=== PATIENT | female | born 1935 | race Caucasian/White ===

== ENCOUNTER 2017-10-17 22:59 | Emergency (ER) | payer MEDICARE, SELFPAY ==
[2017-10-17 23:00] VITALS: BP 139/69; PULSE 63; RESP 17; TEMP 36.7; O2SAT 96; BMI 22.2
--- NOTE | 2017-10-17 23:29 | CT_ITS ---
STUDY: CT CERVICAL SPINE WITHOUT CONTRAST REASON FOR EXAM: Female, 82 years old. Fall down stairs. Loss of consciousness. RADIATION DOSAGE (If Supplied By Facility): CTDIvol = ( 13.00 ) mGy, DLP = ( 253.94 ) mGycm TECHNIQUE: High resolution transaxial imaging was performed without contrast material. Sagittal and coronal images were reconstructed. Individualized dose optimization techniques were used for this CT. COMPARISON: None FINDINGS: Normal craniovertebral junction. Normal anterior atlantoaxial articulation. Normal odontoid process. 4 mm well-corticated density anterior to the midportion of the odontoid likely related to old trauma or degenerative changes. There is reversal of the normal cervical lordosis. Normal vertebral bodies and posterior osseous elements. C2-3: Normal endplates. Normal disc height and morphology. Normal central canal and intervertebral neuroforamina. C3-4: Disc space narrowing small marginal osteophytes. Normal central canal and intervertebral neuroforamina. C4-5: Disc space narrowing with small marginal osteophytes. Reversal of normal cervical lordosis and posterior osteophytes produces [id number] spinal stenosis. Normal intervertebral neuroforamina. C5-6: Disc space narrowing with small marginal osteophytes. 3 mm ovoid density within the anterior aspect of the thecal sac left parasagittal suggestive of an osteophyte disc complex versus free fragment axial image 75 series 6. No significant spinal stenosis. Normal intervertebral neuroforamina. C6-7: Normal endplates. Mild to moderate left central disc protrusion producing [id number] spinal stenosis and narrowing the left neural foramen axial image 80 series 6. C7-T1: Normal endplates. Normal disc height and morphology. Normal central canal and intervertebral neuroforamina. Normal visualized soft tissue structures. Biapical pleural thickening. CT/Spine Cervical without Contras IMPRESSION: No fracture identified in the cervical spine. Multilevel degenerative changes including a left central disc protrusion at C6-7 producing mild to moderate spinal stenosis and narrowing the left neural foramen. C5-6 posterior osteophyte disc complex versus free fragment. Electronically Signed: Mario Sandoval MD at 0:32 EDT , Service support ,
--- NOTE | 2017-10-17 23:29 | CT_ITS ---
STUDY: CT BRAIN WITHOUT CONTRAST REASON FOR EXAM: Female, 82 years old. Fall down stairs. Loss of consciousness. Confusion. RADIATION DOSAGE (If Supplied By Facility): CTDIvol = ( 44.99 ) mGy, DLP = ( 745.49 ) mGycm TECHNIQUE: Transaxial CT imaging of the brain was performed without administration of intravenous contrast material. Individualized dose optimization techniques were used for this CT. COMPARISON: None. FINDINGS: Normal soft tissue structures. Normal calvarium. Normal size ventricles and extra-axial spaces for the patient's age. Normal white matter tracts of the cerebral hemispheres. Normal basal ganglia and thalami. Normal brainstem. Normal cerebellum. Right frontal parietal temporal subarachnoid hemorrhage which extends into the right sylvian fissure. Small right posterior parietal subdural hematoma measuring 4 mm in transverse dimension coronal image 48 and axial image 30 series 2. Very minimal right posterior frontal subdural hemorrhage. No hemorrhage is present within the basal cisterns. There are no findings of an acute ischemic infarction. Minimal right sphenoid sinus mucosal thickening. CT/Brain/Head without Contrast IMPRESSION: Right-sided subarachnoid hemorrhage with small right posterior parietal subdural hematoma and very minimal right frontal subdural hematoma. Findings are most likely related to recent trauma. There is no blood within the basal cisterns to suggest rupture of an intracranial aneurysm. Electronically Signed: Mario Sandoval MD at 0:15 EDT , Service support ,
--- NOTE | 2017-10-17 23:30 | RAD_ITS ---
STUDY: X-RAY - PELVIS REASON FOR EXAM: Female, 82 years old. Fall, alcohol use. TECHNIQUE: One view of the pelvis was obtained. COMPARISON: None. FINDINGS: There is a non-specific bowel gas pattern. Normal visualized soft tissue structures. Normal bilateral iliac wings, sacroiliac joints and visualized sacrum. Normal visualized bilateral superior and inferior pubic rami. Normal pubic symphysis. Normal ischial tuberosities. Normal visualized right femoral head. Normal right acetabulum. Normal right hip joint. Normal visualized left femoral head. Normal left acetabulum. Normal left hip joint. Degenerative changes of the lower lumbar spine. RAD/Pelvis 1 or 2 Views IMPRESSION: No acute findings in the pelvis. Electronically Signed: Mario Sandoval MD at 0:20 EDT , Service support ,
--- NOTE | 2017-10-17 23:30 | RAD_ITS ---
STUDY: X-RAY CHEST REASON FOR EXAM: Female, 82 years old. Fall. Alcohol use. TECHNIQUE: AP portable chest. COMPARISON: None. FINDINGS: The lungs are clear and expanded. There is no demonstrated pleural abnormality. No pneumothorax. Normal size heart. Normal mediastinum and alfredo. Normal visualized pulmonary arteries. Normal visualized aortic arch and descending thoracic aorta. Normal visualized thoracic spine. Normal visualized ribs, clavicles, and shoulders. There is no demonstrated abnormality of the visualized soft tissue structures of the upper abdomen. RAD/Chest 1 View (Portable) IMPRESSION: Normal x-ray examination of the chest. Electronically Signed: Mario Sandoval MD at 0:18 EDT , Service support ,
--- NOTE | 2017-10-17 23:31 | EKG12_ITS ---
Test Reason : Blood Pressure : / mmHG Vent. Rate : 069 BPM Atrial Rate : 069 BPM P-R Int : 214 ms QRS Dur : 086 ms QT Int : 416 ms P-R-T Axes : 058 -11 058 degrees QTc Int : 445 ms Sinus rhythm with 1st degree A-V block Otherwise normal ECG Confirmed by DAMIAN BAER ([id number]), newspaper managing editor ALMITA SIN ([id number]) on 10/30/2017 5:52:29 PM Referred By: WALDO Confirmed By:DAMIAN BAER
[2017-10-17 23:52] LABS: Bacteria 0 SEEN /hpf (None Seen); Mucous, Urine 0 SEEN /hpf (<or=2+); Squamous Epithelial Cells - UA 0 SEEN /hpf (5-10); White Blood Cells 0 SEEN /hpf (0-5)
[2017-10-17 23:53] LABS: Color, Urine Straw (Yellow); Glucose, Dipstick Normal (Normal); Ketone-Dipstick Negative (Negative); Leukocyte Esterase-Dipstick Negative /ul (Negative); Nitrite-Dipstick Negative (Negative); Occult Blood-Urine 10 /ul (Negative); Protein-Dipstick Negative (Negative); Urine Bilirubin Dipstick Negative (Negative); Urine Clarity Clear (Clear); Urine Urobilinogen Normal (Normal)
[2017-10-18] LABS: Red Blood Cells-Urine 0-5 SEEN /hpf (0-5)
--- NOTE | 2017-10-18 00:18 | ED.VISSUMM ---
- ER Visit Summary Date of Service: 10/18/17 Chief Complaint: Fall History of Present Illness: The patient is a 82 F who presents after a fall. She is amnestic. Most of the history was obtained from the son. She drank about 4 glasses of wine tonight. He did not directly witness the fall but heard her fall. She fell down 13-14 steps. Her eyes were open but she was not responsive. He states I thought she was . Her mental status did begin to improve however she still does not remember what happened. No recent illnesses. The patient currently denies any pain or any complaints. Physical Examination: Afebrile vitals are stable I do not appreciate lacerations contusions abrasions or hematomas GCS of 14 No focal or lateralizing neurological deficits normal strength and sensation Heart regular rate and rhythm Lungs are clear Abdomen soft Extremities nontender with active full range of motion ?4 Neck nontender Test Results: CT of the head on my review shows right subarachnoid hemorrhage I do not appreciate any obvious fracture on the CT of the cervical spine. Chest x-ray and pelvis x-rays were negative on my review. Radiology read through the studies are pending. Urinalysis normal. Serum laboratory studies are pending. Emergency Department Course and Treatment: Placed in a cervical collar. I spoke to [facility] and the patient will be transferred to that facility for further trauma care Treatment Plan: [] Disposition: Transfer Impression: Intracranial hemorrhage Fall down steps Alcohol intoxication This note was generated with [employer] dictation software. It may contain incorrect words, spelling, and punctuation that were not noted in review of the chart prior to signing ED Disposition - Plan for ED Patient: Chief Complaint: Fall Referrals: Care Physician,No Primary [Primary Care Provider] -
--- NOTE | 2017-10-18 00:21 | ED.DCSUM_ITS ---
- ER Visit Summary Date of Service: 10/18/17 Chief Complaint: Fall History of Present Illness: The patient is a 82 F who presents after a fall. She is amnestic. Most of the history was obtained from the son. She drank about 4 glasses of wine tonight. He did not directly witness the fall but heard her fall. She fell down 13-14 steps. Her eyes were open but she was not responsive. He states I thought she was . Her mental status did begin to improve however she still does not remember what happened. No recent illnesses. The patient currently denies any pain or any complaints. Physical Examination: Afebrile vitals are stable I do not appreciate lacerations contusions abrasions or hematomas GCS of 14 No focal or lateralizing neurological deficits normal strength and sensation Heart regular rate and rhythm Lungs are clear Abdomen soft Extremities nontender with active full range of motion ?4 Neck nontender Test Results: CT of the head on my review shows right subarachnoid hemorrhage I do not appreciate any obvious fracture on the CT of the cervical spine. Chest x -ray and pelvis x-rays were negative on my review. Radiology read through the studies are pending. Urinalysis normal. Serum laboratory studies are pending. Emergency Department Course and Treatment: Placed in a cervical collar. I spoke to [facility] and the patient will be transferred to that facility for further trauma care Treatment Plan: [] Disposition: Transfer Impression: Intracranial hemorrhage Fall down steps Alcohol intoxication This note was generated with [employer] dictation software. It may contain incorrect words, spelling, and punctuation that were not noted in review of the chart prior to signing ED Disposition - Plan for ED Patient: Chief Complaint: Fall Referrals: Care Physician,No Primary [Primary Care Provider] -
[2017-10-18 00:24] LABS: Absolute Lymphocyte Count 2.31 X10^3/ul (0.83-4.51); Absolute Neutrophil Count 2.8 X10^3/uL (2.0-7.7); Basophil# 0.02 X10^3/uL; Basophil% 0.4 % (0-1); Eosinophil# 0.11 X10^3/uL; Eosinophils% 1.9 % (0-5); Hematocrit 36.7 % (37-47); Lymphocyte # 2.31 X10^3/ul (4.0); Lymphocyte % 40.7 % (19-41); Mean Corp Hgb Conc 32.7 g/gl (32-36); Mean Corpuscular Hgb 30.8 pg (27.0-32.0); Mean Corpuscular Volume 94.3 fL (81-99); Mean Platelet Vol. 9.9 fl (6.2-12.0); Monocyte% 7.1 % (0-10); Neutrophil # 2.83 X10^3/uL (2.7-7.7); Neutrophil % 49.9 % (47-70); Platelet Count 231 K/mm3 (150-450); RBC Distribution Width CV 13.3 % (11.6-14.6); RBC Distribution Width SD 45.8 fl (35.1-43.9); Red Blood Count 3.89 M/mm3 (4.2-5.4); White Blood Count 5.7 K/mm3 (4.4-11.0)
--- NOTE | 2017-10-18 00:26 | CT_ITS ---
STUDY: CTA OF THE BRAIN REASON FOR EXAM: Female, 82 years old. Fall. Right-sided subarachnoid and subdural hemorrhage. RADIATION DOSAGE (If Supplied By Facility): CTDIvol = ( 19.24 ) mGy, DLP = ( 434.73 ) mGycm TECHNIQUE: CT angiography was performed with a multi-detector CT scanner. Data acquisition was obtained from the skull base through the vertex following intravenous administration of 100 ml of Isovue 370. MIP images were reconstructed from the axial data set. Post-processing of the angiographic images was performed, with multiplanar reformation and 3D reconstruction. Individualized dose optimization techniques were used for this CT. COMPARISON: CT head without contrast October 17, 2017. FINDINGS: Normal bilateral petrous carotid arteries. Normal right cavernous carotid artery with a normal supraclinoid bifurcation. Normal left cavernous carotid artery with a normal supraclinoid bifurcation. Attenuated right A1 segments o the anterior cerebral artery. Normal left A1 segments of the anterior cerebral artery. Normal intact anterior communicating artery (ACOM). Normal bilateral A2 segments of the anterior cerebral arteries. Normal right M1 and M2 segments of the middle cerebral arteries, with a normal M1 bifurcation. Normal left M1 and M2 segments of the middle cerebral arteries, with a normal M1 bifurcation. Normal right posterior communicating artery (PCOM). Normal left posterior communicating artery (PCOM). Normal bilateral vertebral arteries. Normal basilar artery with a normal basilar bifurcation. The visualized bilateral superior cerebellar (SCA) arteries are normal. origin of the right posterior cerebral artery. Normal left P1, P2 and visualized P3 segments of the posterior cerebral arteries. There is no demonstrated aneurysm of the cachil dehe of [place]. Right-sided subarachnoid and subdural hemorrhage visualized on the recent noncontrast CT head, not well appreciated on this contrast-enhanced study. CT/CTA Head W/WO Contrast IMPRESSION: No intracranial aneurysm. Normal variants involving the cachil dehe of [place] as above. Electronically Signed: Mario Sandoval MD at 2:14 EDT , Service support ,
[2017-10-18 00:27] LABS: POSITIVE COUNT NO; POSITIVE DIFFERENTIAL NO; POSITIVE MORPHOLOGY NO
[2017-10-18 00:30] LABS: International Normalized Ratio 0.9; Prothrombin Time (Protime)PT. 12.5 SECONDS (11.7-14.9)
[2017-10-18 00:39] LABS: Anion Gap 9 (5-15); BUN 19 mg/dL (7-18); BUN/Creat Ratio 30.1 RATIO (10-20); Calcium,Total 8.5 mg/dL (8.5-10.1); Chloride 109 mmol/L (98-107); Creatinine, Serum 0.63 mg/dL (0.55-1.02); EST Glomerular Filtration Rate 96 mL/min (>60); Est Glom Filt Rate - Afr Amer 116 mL/min (>60); Estimated Creatinine Clearance 35.49 ml/min; Glucose 135 mg/dL (74-106); Potassium 3.3 mmol/L (3.5-5.1); Sodium Level 144 mmol/L (136-145)
[2017-10-18 01:24] VITALS: BP 152/71; PULSE 73; RESP 20; O2SAT 95
[2017-10-18 01:25] VITALS: BP 157/81; PULSE 67; RESP 16; O2SAT 96
== END 2017-10-18 01:40 | disposition short-term general hospital (02) ==
PROVIDERS: Emergency Provider Emergency Medicine
DX: S06.6X9A Traumatic subarachnoid hemorrhage with loss of consciousness of unspecified duration, initial encounter (principal); R40.2410 Glasgow coma scale score 13-15, unspecified time; W10.9XXA Fall (on) (from) unspecified stairs and steps, initial encounter; Y93.9 Activity, unspecified; Y92.9 Unspecified place or not applicable; F10.129 Alcohol abuse with intoxication, unspecified; Y90.9 Presence of alcohol in blood, level not specified; Z86.39 Personal history of other endocrine, nutritional and metabolic disease; Z85.3 Personal history of malignant neoplasm of breast; Z86.19 Personal history of other infectious and parasitic diseases
CPT/HCPCS: 70450; 70496; 71045; 72125; 72170; 80048; 80320; 81001; 85025; 85610; 93005; 99285; Q9967; A4216; G0480